=== PATIENT | male | born 1990 | race Caucasian/White ===

== ENCOUNTER 2024-04-11 23:26 | Emergency (ER) | payer OTHER ==
[2024-04-11 23:35] VITALS: BP 142/96; PULSE 106; RESP 18; TEMP 97.9; BMI 26.6
[2024-04-12] MEDS ORDERED: ACETAMINOPHEN 325 MG TABLET (FP) ONE (00:15)
[2024-04-12] MEDS ORDERED: LIDOCAINE 4% PATCH TP ONE (00:15)
[2024-04-12] MEDS: LIDOCAINE 4% PATCH TP ONE (00:39)
[2024-04-12] MEDS: ACETAMINOPHEN 325 MG TABLET (FP) PO ONE (00:39)
[2024-04-12] MEDS: LIDOCAINE 5% TOPICAL PATCH TP ONE (00:44)
[2024-04-12] MEDS ORDERED: LIDOCAINE PATCH REMOVAL MC ONE (13:00)
[2024-04-12] MEDS ORDERED: LIDOCAINE PATCH REMOVAL MC SCH (22:00)
== END 2024-04-12 02:56 | disposition home or self-care (01) ==
LOC: JER 23:26
DX: S43.51XA Sprain of right acromioclavicular joint, initial encounter (principal); V49.40XA Driver injured in collision with unspecified motor vehicles in traffic accident, initial encounter; Y92.410 Unspecified street and highway as the place of occurrence of the external cause
CPT/HCPCS: 73030-TC-LT-FY; 73070-TC-LT-FY; 99283-25